=== PATIENT | female | born 1960 | race Caucasian/White ===

== ENCOUNTER 2018-07-29 18:41 | Outpatient (REF) | payer BC, SELFPAY ==
[2018-07-29 22:17] LABS: Absolute Basophil Count 0.02 k/cumm (0.0-0.2); Absolute Lymphocyte Count 1.27 k/cumm (1.2-3.4); Absolute Monocyte Count 0.47 k/cumm (0.11-0.7); Basophils % 0.5; Eosinophils % 7.8; HCT 36.5 % (36.0-46.0); HGB 12.6 g/dL (12.0-15.5); Lymphocytes % 32.9; Mean Corp. HGB Concentration 34.5 g/dL (32.0-36.0); Mean Corpuscular Hemoglobin 34.1 pg (27.0-33.0); Mean Corpuscular Volume 98.9 fL (80-95); Monocytes % 12.2; Neutrophils % 46.6; RBC 3.69 m/cumm (4.00-5.20); RBC Distribution Width 12.2 % (11.7-14.6); White Blood Cell Count 3.86 k/cumm (4.4-10.8)
[2018-07-29 22:22] LABS: ALT 25 U/L (12-78); AST 20 U/L (15-37); Alkaline Phosphatase 59 U/L (46-116); Anion Gap 5.5 mmol/L (3-11); BUN 13 mg/dL (7-18); Bilirubin, Total 0.4 mg/dL (0.2-1.0); CO2 28.5 mmol/L (21.0-32.0); CREATININE 0.72 mg/dL (0.55-1.02); Calcium 9.2 mg/dL (8.5-10.1); Chloride 98 mmol/L (98-107); Glucose 80 mg/dL (70-100); Potassium 4.2 mmol/L (3.5-5.1); Sodium 132 mmol/L (136-145); Total Protein 6.9 g/dL (6.4-8.2)
[2018-07-29 22:36] LABS: Platelet Count 70 x1000/uL (130-400)
== END 2018-07-29 19:01 ==
LOC: NCHCN 18:41
PROVIDERS: PCP Internal Medicine; Visit Provider Nurse Practitioner Family
DX: R10.11 Right upper quadrant pain (principal)
CPT/HCPCS: 80053; 85025

== ENCOUNTER 2018-09-06 10:12 | Outpatient (REF) | payer BC, SELFPAY ==
[2018-09-06 21:03] LABS: Abs Immature Grans 0.01 k/cumm (0.0-0.09); Absolute Basophil Count 0.03 k/cumm (0.0-0.2); Absolute Lymphocyte Count 0.97 k/cumm (1.2-3.4); Absolute Monocyte Count 0.43 k/cumm (0.11-0.7); Absolute Neutrophil Count 1.61 k/cumm (1.2-6.7); Basophils % 0.9; HCT 37.6 % (36.0-46.0); HGB 12.9 g/dL (12.0-15.5); Immature Grans % 0.3; Mean Corp. HGB Concentration 34.3 g/dL (32.0-36.0); Mean Corpuscular Hemoglobin 34.7 pg (27.0-33.0); Mean Corpuscular Volume 101.1 fL (80-95); Mean Platelet Volume 11.2 fL (8.0-11.0); Monocytes % 12.8; RBC 3.72 m/cumm (4.00-5.20); RBC Distribution Width 12.3 % (11.7-14.6); White Blood Cell Count 3.35 k/cumm (4.4-10.8)
[2018-09-06 22:11] LABS: Platelet Count 92 x1000/uL (130-400)
[2018-09-06 22:12] LABS: Diff Comment Diff Reviewed; RBC Morphology Normal
== END 2018-09-06 10:32 ==
LOC: NCHCN 10:12
PROVIDERS: PCP Internal Medicine; Visit Provider Internal Medicine
DX: Z00.01 Encounter for general adult medical examination with abnormal findings (principal)
CPT/HCPCS: 85027; 85025

== ENCOUNTER 2019-08-11 11:23 | Outpatient (REF) | payer BC, SELFPAY ==
[2019-08-11 22:09] LABS: Folate 15.1 ng/mL (8.6-20.0); Magnesium 1.9 mg/dL (1.8-2.4); Sodium 134 mmol/L (136-145); TSH (W/Ref FT4) 2.12 uIU/mL (0.36-3.74); Vitamin B12 510 pg/mL (193-986)
== END 2019-08-11 11:43 ==
LOC: NCHCN 11:23
PROVIDERS: PCP Internal Medicine; Visit Provider Family Medicine
DX: K59.00 Constipation, unspecified (principal); E87.1 Hypo-osmolality and hyponatremia; D75.89 Other specified diseases of blood and blood-forming organs
CPT/HCPCS: 82607; 82746; 83735; 84295; 84443

== ENCOUNTER 2019-12-06 16:27 | Outpatient (REF) | payer BC, SELFPAY ==
[2019-12-09 12:55] LABS: IgA 112 mg/dL (85-499); Tissue Transglutaminase IgA <1.2 U/mL (<4.0)
== END 2019-12-06 16:47 ==
LOC: NCHCN 16:27
PROVIDERS: PCP Internal Medicine; Visit Provider Family Medicine
DX: K59.00 Constipation, unspecified (principal)
CPT/HCPCS: 82784; 83516

== ENCOUNTER 2021-11-06 14:27 | Outpatient (REF) | payer BC, SELFPAY ==
[2021-11-08 09:57] LABS: Hepatitis C Ab w Rflx HCV PCR Negative (Negative)
[2021-11-08 10:52] LABS: HIV-1/2 Ag & Ab Screen Negative (Negative)
[2021-11-08 10:57] LABS: Syphilis Serology (RPR) Negative (Negative)
[2021-11-08 14:45] LABS: Chlamydia Result Negative (Negative); GC Result Negative (Negative)
== END 2021-11-06 14:28 | disposition home or self-care (01) ==
LOC: NCHCN 14:27
PROVIDERS: PCP Internal Medicine; Visit Provider Family Medicine
DX: Z11.3 Encounter for screening for infections with a predominantly sexual mode of transmission (principal); Z11.4 Encounter for screening for human immunodeficiency virus [HIV]; Z11.59 Encounter for screening for other viral diseases
CPT/HCPCS: 86803; 87389; 87491; 87591; 86592

== ENCOUNTER 2021-11-11 10:49 | Outpatient (REF) | payer BC, SELFPAY ==
[2021-11-11 16:35] LABS: Vitamin D 25 Total 59.1 ng/mL (30-100)
== END 2021-11-11 10:50 | disposition home or self-care (01) ==
LOC: NCHCN 10:49
PROVIDERS: PCP Internal Medicine; Visit Provider Nurse Practitioner Family
DX: Z82.62 Family history of osteoporosis (principal)
CPT/HCPCS: 82306

== ENCOUNTER 2022-10-28 13:31 | Outpatient (REF) | payer BC, SELFPAY ==
[2022-10-28 15:26] LABS: Anion Gap 8.1 mmol/L (3-11); BUN 19 mg/dL (7-18); CO2 26.9 mmol/L (21.0-32.0); CREATININE 0.7 mg/dL (0.55-1.02); Calcium 9.4 mg/dL (8.5-10.1); Calculated LDL 118 mg/dL (<100); Chloride 98 mmol/L (98-107); Cholesterol 215 mg/dL (<200); Estimated GFR 97.12 (mL/min/1.73m2); Glucose 83 mg/dL (74-106); HDL Cholesterol 91 mg/dL (40-60); Potassium 4.4 mmol/L (3.5-5.1); Sodium 133 mmol/L (136-145); Triglyceride 34 mg/dL (<150)
[2022-10-28 16:04] LABS: Vitamin D 25 Total 57.5 ng/mL (30-100)
== END 2022-10-28 13:32 | disposition home or self-care (01) ==
LOC: NCHCN 13:31
PROVIDERS: PCP Internal Medicine; Visit Provider Family Medicine
DX: M85.88 Other specified disorders of bone density and structure, other site (principal); Z00.00 Encounter for general adult medical examination without abnormal findings
CPT/HCPCS: 80048; 80061; 82306

== ENCOUNTER 2023-10-29 12:05 | Outpatient (REF) | payer BC, SELFPAY ==
--- NOTE | 2023-10-29 11:15 | PAPFT_PTH ---
PATIENT: Belkys Lozada LOC: [facility]#:[id number] AGE/SX: 63/F ROOM: RE10/29/[address]: Hay Davila : 1960 BED: DIS: 10/29/2023 SPEC #: [id number] RECD: 10/30/23 12:57 STATUS: TERESA REQ #: [id number] TRACEY: 10/29/23 11:[address]: Hay Davila DEPT: [facility] Cytology RECD BY: Ju Zepeda ENTERED: 10/30/23 12:58 SP TYPE: PAPFT OTHR DR: Kings Caballero Tissues: 1 - CX/ENDOCX FOR PAP SMEARS Procedures: PAP THIN PREP/[facility] Screening HPV DNA PROBE Comments: [id number]
== END 2023-10-29 12:06 | disposition home or self-care (01) ==
LOC: NCHCN 12:05
PROVIDERS: PCP Internal Medicine; Visit Provider Family Medicine
DX: Z00.00 Encounter for general adult medical examination without abnormal findings (principal); Z12.4 Encounter for screening for malignant neoplasm of cervix
CPT/HCPCS: 88142; 87624

== ENCOUNTER 2024-02-04 20:06 | Outpatient (REF) | payer BC, SELFPAY ==
[2024-02-04 21:21] LABS: HCT 37.3 % (36.0-46.0); HGB 12.9 g/dL (11.2-15.7); MCH 33.8 pg (27.0-33.0); MCHC 34.6 % (32.0-36.0); MCV 98 fL (80-95); RBC 3.82 10^6/uL (3.93-5.22); RDW 12.5 % (11.7-14.6); WBC 4.69 10^3/uL (4.4-10.8)
[2024-02-04 21:38] LABS: ALT 26 U/L (14-59); AST 21 U/L (15-37); Albumin 4.1 g/dL (3.4-5.0); Alkaline Phosphatase 54 U/L (46-116); Anion Gap 12.7 mmol/L (3-11); BUN 17 mg/dL (7-18); Bilirubin, Total 0.4 mg/dL (0.2-1.0); CO2 23.3 mmol/L (21.0-32.0); CREATININE 0.7 mg/dL (0.55-1.02); Calcium 9.2 mg/dL (8.5-10.1); Chloride 100 mmol/L (98-107); Estimated GFR 95.92 (mL/min/1.73m2); Glucose 97 mg/dL (74-106); Potassium 4.2 mmol/L (3.5-5.1); Sodium 136 mmol/L (136-145); TSH (W/Ref FT4) 1.68 uIU/mL (0.36-3.74); Total Protein 7.4 g/dL (6.4-8.2)
== END 2024-02-04 20:07 | disposition home or self-care (01) ==
LOC: NCHCN 20:06
PROVIDERS: PCP Internal Medicine; Visit Provider Family Medicine
DX: K80.50 Calculus of bile duct without cholangitis or cholecystitis without obstruction (principal); K59.00 Constipation, unspecified
CPT/HCPCS: 80053; 85027; 84443

== ENCOUNTER 2024-02-09 15:31 | Outpatient (REF) | payer BC, SELFPAY ==
[2024-02-09 21:36] LABS: Abs Immature Grans 0.01 10^3/uL (0.0-0.06); Absolute Basophil Count 0.04 10^3/uL (0.0-0.2); Absolute Eosinophil Count 0.23 10^3/uL (0.0-0.7); Absolute Lymphocyte Count 1.45 10^3/uL (1.2-3.4); Absolute Monocyte Count 0.44 10^3/uL (0.1-0.8); Absolute Neutrophil Count 2.26 10^3/uL (1.2-6.7); Basophils % 0.9; Eosinophils % 5.2; HCT 37.6 % (36.0-46.0); HGB 12.7 g/dL (11.2-15.7); Immature Grans % 0.2; Lymphocytes % 32.7; MCH 33.8 pg (27.0-33.0); MCHC 33.8 % (32.0-36.0); MCV 100 fL (80-95); MPV 10.4 fL (8.0-11.0); Monocytes % 9.9; Neutrophils % 51.1; Platelet Count 145 10^3/uL (130-400); RBC 3.76 10^6/uL (3.93-5.22); RDW 12.8 % (11.7-14.6); RDW-SD 47.1 fL; WBC 4.43 10^3/uL (4.4-10.8)
[2024-02-09 22:16] LABS: Folate 11.5 ng/mL (8.6-20.0); Vitamin B12 386 pg/mL (193-986)
== END 2024-02-09 15:32 | disposition home or self-care (01) ==
LOC: NCHCN 15:31
PROVIDERS: PCP Internal Medicine; Visit Provider Family Medicine
DX: D75.89 Other specified diseases of blood and blood-forming organs (principal)
CPT/HCPCS: 82607; 82746; 85025

== ENCOUNTER 2024-10-05 13:10 | Outpatient (REF) | payer BC, SELFPAY ==
[2024-10-05 14:43] LABS: Abs Immature Grans 0.01 10^3/uL (0.0-0.06); Absolute Basophil Count 0.02 10^3/uL (0.0-0.2); Absolute Eosinophil Count 0.21 10^3/uL (0.0-0.7); Absolute Lymphocyte Count 1.16 10^3/uL (1.2-3.4); Absolute Monocyte Count 0.52 10^3/uL (0.1-0.8); Basophils % 0.5 %; HCT 38.2 % (36.0-46.0); HGB 12.8 g/dL (11.2-15.7); Immature Grans % 0.2 %; Lymphocytes % 27.5 %; MCH 33.6 pg (27.0-33.0); MCHC 33.5 % (32.0-36.0); MCV 100 fL (80-95); Monocytes % 12.3 %; Neutrophils % 54.5 %; RBC 3.81 10^6/uL (3.93-5.22); RDW 12.2 % (11.7-14.6); RDW-SD 45.2 fL; WBC 4.22 10^3/uL (4.4-10.8)
== END 2024-10-05 13:11 | disposition home or self-care (01) ==
LOC: NCHCN 13:10
PROVIDERS: PCP Internal Medicine; Visit Provider Family Medicine
DX: R59.0 Localized enlarged lymph nodes (principal)
CPT/HCPCS: 85025

== ENCOUNTER 2025-11-07 19:23 | Outpatient (REF) | payer BC, SELFPAY ==
[2025-11-07 21:26] LABS: HCT 39.1 % (36.0-46.0); HGB 13.4 g/dL (11.2-15.7); MCH 34.0 pg (27.0-33.0); MCHC 34.3 % (32.0-36.0); MCV 99 fL (80-95); RBC 3.94 10^6/uL (3.93-5.22); RDW 12.0 % (11.7-14.6); RDW-SD 44.2 fL; WBC 3.70 10^3/uL (4.4-10.8)
[2025-11-07 21:54] LABS: Vitamin B12 641 pg/mL (211-911)
[2025-11-07 22:13] LABS: ALT 21 U/L (10-49); AST 26 U/L (<34); Albumin 4.6 g/dL (3.2-5.0); Alkaline Phosphatase 52 U/L (46-116); Anion Gap 8.8 mmol/L (3-11); BUN 16 mg/dL (9-23); Bilirubin, Total 0.7 mg/dL (0.2-1.2); CO2 25.2 mmol/L (20.0-31.0); Calcium 9.5 mg/dL (8.3-10.6); Chloride 102 mmol/L (98-107); Cholesterol 210 mg/dL (<200); Glucose 97 mg/dL (74-106); HDL Cholesterol 97 mg/dL (>40); Potassium 4.2 mmol/L (3.5-5.1); Sodium 136 mmol/L (136-145); Total Protein 7.6 g/dL (5.7-8.2)
== END 2025-11-07 19:24 | disposition home or self-care (01) ==
LOC: NCHCN 19:23
PROVIDERS: PCP Internal Medicine; Visit Provider Family Medicine
DX: Z00.00 Encounter for general adult medical examination without abnormal findings (principal); D75.89 Other specified diseases of blood and blood-forming organs
CPT/HCPCS: 80053; 80061; 85027; 82607